=== PATIENT | female | born 2000 | race American Indian/Alaskan Native ===

== ENCOUNTER 2020-04-01 13:19 | Outpatient (CLI) | payer MEDICAID, OTHER ==
[2020-04-01 13:39] VITALS: BP 121/78
[2020-04-01] MEDS ORDERED: LACTATED RINGERS 1,000 ML IV SCH (13:45)
[2020-04-01 14:03] LABS: Bilirubin,Urine NEG (Negative); Blood,Urine NEG (Negative); Color,Urine Yellow (Yellow); Mucus,Urine FEW /HPF; Protein,Urine <15 mg/dL mg/dL (Negative); Urobilinogen,Urine < 2.0 mg/dL (<2.0)
== END 2020-04-01 14:36 | disposition home or self-care (01) ==
LOC: TRG 13:19 → APU 13:22 → TRG 14:36
PROVIDERS: ATTEND Obstetrics & Gynecology
DX: O26.893 Other specified pregnancy related conditions, third trimester (principal); L29.9 Pruritus, unspecified; Z3A.33 33 weeks gestation of pregnancy
CPT/HCPCS: 59025; 81001

== ENCOUNTER 2020-05-16 21:45 | Inpatient (IN) | payer MEDICAID ==
[2020-05-16 22:53] LABS: Amphetamine Screen,Urine Negative; Benzodiazepines Screen,Urine Negative; Cannabinoid Screen,Urine Negative; Cocaine Screen,Urine Negative; Methadone Screen,Urine Negative; Opiate Screen,Urine Negative
[2020-05-16 22:56] LABS: Bacteria,Urine 2+ /HPF (Negative); Bilirubin,Urine NEG (Negative); Blood,Urine NEG (Negative); Color,Urine Straw (Yellow); Protein,Urine <15 mg/dL mg/dL (Negative); Urobilinogen,Urine < 2.0 mg/dL (<2.0)
[2020-05-16] MEDS ORDERED: BUTORPHANOL 2 MG/1 ML INJ IV PRN (23:29)
[2020-05-16] MEDS ORDERED: TERBUTALINE 1 MG/1 ML INJ SUB-Q PRN (23:29)
[2020-05-16] MEDS ORDERED: fentaNYL 100 MCG/2 ML INJ IV PRN (23:29)
[2020-05-16] MEDS ORDERED: ePHEDrine SULFATE 50 MG/1 ML INJ IV PRN (23:29)
[2020-05-16] MEDS ORDERED: ONDANSETRON 4 MG/2 ML INJ IV PRN (23:29)
[2020-05-16] MEDS ORDERED: MINERAL OIL 30 ML ORAL LIQD PO PRN (23:29)
[2020-05-16] MEDS ORDERED: LIDOCAINE (2%) 20 MG/1 ML VIAL 20 ML MDV INFILTRATI ONE (23:29)
[2020-05-16] MEDS ORDERED: OXYTOCIN DRIP 30 UNITS/500 ML BAG IV SCH ×2 (23:45)
[2020-05-17 00:25] LABS: Hematocrit 31.9 % (30.3-42.9); Hemoglobin 11.1 gm/dl (10.1-14.3); Mean Corpuscular HGB Conc 35 % (30-34); Mean Corpuscular Volume 90 fl (79-97); Platelet Count 219 K/mm3 (140-440); Red Blood Count 3.55 M/mm3 (3.65-5.03); Red Cell Distribution Width 13.8 % (13.2-15.2)
[2020-05-17] MEDS: LACTATED RINGERS 1,000 ML IV SCH ×3 (00:26→09:32)
[2020-05-17] MEDS ORDERED: AMPICILLIN/NS 2 GM/100 ML 2 GM/100 ML BAG IV ONE (01:00)
[2020-05-17] MEDS ORDERED: fentaNYL-BUPIV 2 MCG/ML-0.125% 200 MCG/100 ML BAG EPIDURAL ONE (01:25)
[2020-05-17] MEDS ORDERED: ePHEDrine SULFATE 50 MG/1 ML INJ IV PRN (01:28)
[2020-05-17] MEDS ORDERED: NALOXONE 2 MG/2 ML INJ IV PRN (01:28)
--- NOTE | 2020-05-17 01:28 | Anesthesia Consultation ---
Anesthesia Consult and Med Hx Date of service: 05/17/20 - Airway Anesthetic Teeth Evaluation: Good ROM Head & Neck: Adequate Mental/Hyoid Distance: Adequate Mallampati Class: Class II Intubation Access Assessment: Probably Good - Pulmonary Exam CTA: Yes - Cardiac Exam Cardiac Exam: RRR - Pre-Operative Health Status ASA Pre-Surgery Classification: ASA2 Proposed Anesthetic Plan: Epidural - Pulmonary Hx Asthma: Yes (exercised induced) COPD: No Hx Pneumonia: No - Cardiovascular System Hx Hypertension: No - Central Nervous System Hx Seizures: No Hx Psychiatric Problems: No - Endocrine Hx Renal Disease: No Hx End Stage Renal Disease: No Hx Hypothyroidism: No Hx Hyperthyroidism: No - Hematic Hx Anemia: Yes (taking iron) Hx Sickle Cell Disease: No - Other Systems Hx Alcohol Use: No
--- NOTE | 2020-05-17 02:03 | Progress Note ---
Labor Epidural - Labor Epidural Start Time: 01:37 Stop Time: 01:55 Performed by:: BERTRAM CORTES Procedure: Patient is requesting epidural for labor pain. H&P, and labs reviewed. Procedure explained, questions answered, consent obtained. Patient in sitting position with blood pressure cuff and pulse ox on and working. Timeout performed immediately before start of procedure. Sterile chlorahexadine 0.5% prep/drape. 3 mL 1% lidocaine skin wheal at L[3]-L[4]. 18-gauge Tuohy epidural needle advanced to [id number] with saline at 5 cm. 27-gauge spinal needle advanced until clear, free-flowing CSF. Intrathecal dexmedetomidine [5] mcg administered and needle removed. Epidural catheter advanced to 10 cm, negative aspiration for blood and csf, negative test dose 3 ml 1.5% lidocaine with epinephrine. Sterile steri-strips and tegaderm applied, followed by tape reinforcement. Patient tolerated procedure well. x3 attempts. Pt has scoliosis with spine 3 cm off midline.
[2020-05-17] MEDS: fentaNYL-BUPIV 2 MCG/ML-0.125% 200 MCG/100 ML BAG EPIDURAL SCH ×2 (02:04→09:46)
[2020-05-17] MEDS: AMPICILLIN/NS 1 GM/50 ML 1 GM/50 ML BAG IV SCH ×2 (04:35→09:32)
--- NOTE | 2020-05-17 08:45 | History and Physical Report ---
History of Present Illness Date of examination: 05/17/20 Date of admission: 05/16/20 22:29 Chief complaint: labor History of present illness: at weeks, active labor no PNC Past History Past Surgical History: no surgical history BAKER PASTRY History: chlamydia, herpes, trichomonas Social history: no significant social history - Obstetrical History Expected Date of Delivery: 05/14/20 Actual Gestation: 40 Week(s) 4 Day(s) : 3 Medications and Allergies Allergies Allergy/AdvReac Type Severity Reaction Status Date / Time No Known Allergies Allergy Verified 04/01/20 13:31 Home Medications Medication Instructions Recorded Confirmed Last Taken Type Ibuprofen [Motrin] 600 mg PO Q8H PRN #60 tablet 05/17/20 Unknown Rx Vit-Fe Fumar-FA [ 1 tab PO DAILY 05/17/20 05/17/20 Unknown History Vitamin] Valtrex 1 tab PO DAILY 05/17/20 05/17/20 1 Day Ago History ~05/16/20 Active Meds: Active Medications Butorphanol Tartrate (Butorphanol 2 Mg/1 Ml Inj) 2 mg IV Q2H PRN PRN Reason: Pain , Severe (7-10) Ephedrine Sulfate (Ephedrine Sulfate 50 Mg/1 Ml Inj) 10 mg IV Q2M PRN PRN Reason: Hypotension Fentanyl (Fentanyl 100 Mcg/2 Ml Inj) 100 mcg IV Q2H PRN PRN Reason: Pain,Severe (7-10) LABOR PAIN Last Admin: 05/17/20 00:46 Dose: 100 mcg Documented by: Oxytocin/Sodium Chloride (Pitocin/Ns 30 Unit/500ml) 30 units in 500 mls @ 2 mls/hr IV TITR JERAMIE; Protocol Lactated Ringer's (Lactated Ringers) 1,000 mls @ 125 mls/hr IV DIRECT JERAMIE Last Infusion: 05/17/20 02:05 Dose: 125 mls/hr Documented by: Oxytocin/Sodium Chloride (Pitocin/Ns 30 Unit/500ml) 30 units in 500 mls @ 40 mls/hr IV TITR JERAMIE; Protocol Ampicillin Sodium (Ampicillin/Ns 1 Gm/50 Ml) 1 gm in 50 mls @ 100 mls/hr IV Q4H JERAMIE; Protocol Last Admin: 05/17/20 04:35 Dose: 100 mls/hr Documented by: Fentanyl/Bupivacaine/Sodium Chlor (Fentanyl-Bupiv 2 Mcg/Ml-0.125%) 200 mcg in 100 mls @ 12 mls/hr EPIDURAL TITR JERAMIE; Protocol Last Admin: 05/17/20 02:04 Dose: 12 mls/hr Documented by: Mineral Oil (Mineral Oil 30 Ml Oral Liqd) 30 ml PO QHS PRN PRN Reason: Constipation Naloxone HCl (Naloxone 2 Mg/2 Ml Inj) 0.2 mg IV Q5M PRN PRN Reason: Respiratory sedation Ondansetron HCl (Ondansetron 4 Mg/2 Ml Inj) 4 mg IV Q8H PRN PRN Reason: Nausea And Vomiting Terbutaline Sulfate (Terbutaline 1 Mg/1 Ml Inj) 0.25 mg SUB-Q ONCE PRN PRN Reason: Hyperstimulation/Hypertonicity - Vital Signs Vital signs: Vital Signs Temp Resp 98.3 F 20 05/16/20 22:44 05/16/20 22:44 Temp Pulse Resp BP Pulse Ox 97.6 F 55 L 18 149/74 98 05/17/20 04:36 05/17/20 08:41 05/17/20 04:36 05/17/20 08:39 05/17/20 08:41 - Physical Exam Breasts: Positive: deferred Cardiovascular: Normal S1 Lungs: Positive: Clear to auscultation Abdomen: Positive: normal appearance, soft, normal bowel sounds Extremities: Positive: normal Deep Tendon Reflex Grade: Normal +2 - Obstetrical FHR: category 1 Cervical Dilatation: 7 Cervical Effacement Percentage: 100 station: -1 Uterine Contraction Pattern: Regular Results Result Diagrams: 05/18/20 04:31 Abnormal lab results 05/16/20 05/17/20 Range/Units 22:30 00:12 WBC 11.4 H (4.5-11.0) K/mm3 RBC 3.55 L (3.65-5.03) M/mm3 MCHC 35 H (30-34) % Urine pH 8.0 H (5.0-7.0) Urine WBC (Auto) 14.0 H (0.0-6.0) /HPF All other labs normal. Assessment and Plan admit epidural pitocin per protocol GBS if appropriate CFM expect logan Farmer MD
--- NOTE | 2020-05-17 10:59 | Progress Note ---
Subjective - Subjective Date of service: 05/17/20 Interval history: 100/0 AROM clear fluid oxytocin per protocol CFM Maternal/ well being reassuring overall expect ru Farmer MD Objective - Vital Signs Vital Signs: Vital Signs - 12hr 05/16/20 05/17/20 05/17/20 23:33 00:09 00:14 Temperature Pulse Rate 56 L 84 68 Respiratory Rate Blood Pressure 155/91 Blood Pressure [Right] O2 Sat by Pulse 98 98 Oximetry 05/17/20 05/17/20 05/17/20 00:19 00:23 00:24 Temperature Pulse Rate 65 56 L 72 Respiratory Rate Blood Pressure Blood Pressure [Right] O2 Sat by Pulse 99 93 96 Oximetry 05/17/20 05/17/20 05/17/20 00:29 00:32 00:34 Temperature Pulse Rate 55 L 58 L 64 Respiratory Rate Blood Pressure Blood Pressure [Right] O2 Sat by Pulse 97 94 99 Oximetry 05/17/20 05/17/20 05/17/20 00:39 00:44 00:46 Temperature Pulse Rate 59 L 72 Respiratory 18 Rate Blood Pressure Blood Pressure [Right] O2 Sat by Pulse 98 96 Oximetry 05/17/20 05/17/20 05/17/20 00:49 00:54 00:55 Temperature Pulse Rate 55 L 62 55 L Respiratory Rate Blood Pressure Blood Pressure [Right] O2 Sat by Pulse 92 96 92 Oximetry 05/17/20 05/17/20 05/17/20 00:59 01:04 01:09 Temperature Pulse Rate 55 L 53 L 66 Respiratory Rate Blood Pressure Blood Pressure [Right] O2 Sat by Pulse 96 96 97 Oximetry 05/17/20 05/17/20 05/17/20 01:10 01:14 01:19 Temperature Pulse Rate 68 53 L 54 L Respiratory Rate Blood Pressure 135/91 Blood Pressure [Right] O2 Sat by Pulse 97 99 Oximetry 05/17/20 05/17/20 05/17/20 01:24 01:29 01:36 Temperature Pulse Rate 57 L 68 73 Respiratory Rate Blood Pressure Blood Pressure [Right] O2 Sat by Pulse 99 98 98 Oximetry 05/17/20 05/17/20 05/17/20 01:39 01:41 01:46 Temperature Pulse Rate 68 67 70 Respiratory Rate Blood Pressure 130/68 Blood Pressure [Right] O2 Sat by Pulse 97 98 Oximetry 05/17/20 05/17/20 05/17/20 01:51 01:54 01:56 Temperature Pulse Rate 67 85 86 Respiratory Rate Blood Pressure 139/68 129/66 Blood Pressure [Right] O2 Sat by Pulse 98 98 Oximetry 05/17/20 05/17/20 05/17/20 02:01 02:02 02:04 Temperature Pulse Rate 67 61 67 Respiratory Rate Blood Pressure 119/64 124/65 117/63 Blood Pressure [Right] O2 Sat by Pulse 98 Oximetry 05/17/20 05/17/20 05/17/20 02:06 02:08 02:10 Temperature Pulse Rate 79 71 87 Respiratory Rate Blood Pressure 124/69 119/66 123/73 Blood Pressure [Right] O2 Sat by Pulse 98 Oximetry 05/17/20 05/17/20 05/17/20 02:11 02:13 02:14 Temperature Pulse Rate 71 61 60 Respiratory Rate Blood Pressure 124/72 124/72 Blood Pressure [Right] O2 Sat by Pulse 98 Oximetry 05/17/20 05/17/20 05/17/20 02:16 02:21 02:26 Temperature Pulse Rate 61 60 66 Respiratory Rate Blood Pressure 120/72 Blood Pressure [Right] O2 Sat by Pulse 98 98 98 Oximetry 05/17/20 05/17/20 05/17/20 02:31 02:36 02:39 Temperature Pulse Rate 58 L 62 57 L Respiratory Rate Blood Pressure 116/64 Blood Pressure [Right] O2 Sat by Pulse 98 97 Oximetry 05/17/20 05/17/20 05/17/20 02:41 02:46 02:51 Temperature Pulse Rate 60 65 63 Respiratory Rate Blood Pressure Blood Pressure [Right] O2 Sat by Pulse 97 97 98 Oximetry 05/17/20 05/17/20 05/17/20 02:56 02:59 03:01 Temperature Pulse Rate 69 57 L 58 L Respiratory Rate Blood Pressure 119/77 Blood Pressure [Right] O2 Sat by Pulse 98 97 Oximetry 05/17/20 05/17/20 05/17/20 03:06 03:11 03:16 Temperature Pulse Rate 62 64 70 Respiratory Rate Blood Pressure Blood Pressure [Right] O2 Sat by Pulse 98 98 98 Oximetry 05/17/20 05/17/20 05/17/20 03:20 03:21 03:25 Temperature Pulse Rate 65 67 60 Respiratory Rate Blood Pressure 121/80 Blood Pressure [Right] O2 Sat by Pulse 97 89 Oximetry 05/17/20 05/17/20 05/17/20 03:26 03:31 03:36 Temperature Pulse Rate 67 73 57 L Respiratory Rate Blood Pressure Blood Pressure [Right] O2 Sat by Pulse 98 97 98 Oximetry 05/17/20 05/17/20 05/17/20 03:39 03:41 03:46 Temperature Pulse Rate 57 L 59 L 64 Respiratory Rate Blood Pressure 122/79 Blood Pressure [Right] O2 Sat by Pulse 98 97 Oximetry 05/17/20 05/17/20 05/17/20 03:51 03:56 03:59 Temperature Pulse Rate 53 L 54 L 53 L Respiratory Rate Blood Pressure 127/79 Blood Pressure [Right] O2 Sat by Pulse 98 98 Oximetry 05/17/20 05/17/20 05/17/20 04:01 04:06 04:11 Temperature Pulse Rate 55 L 60 60 Respiratory Rate Blood Pressure Blood Pressure [Right] O2 Sat by Pulse 98 98 98 Oximetry 05/17/20 05/17/20 05/17/20 04:16 04:18 04:21 Temperature Pulse Rate 54 L 53 L 59 L Respiratory Rate Blood Pressure 121/80 Blood Pressure [Right] O2 Sat by Pulse 98 98 Oximetry 05/17/20 05/17/20 05/17/20 04:26 04:31 04:36 Temperature 97.6 F Pulse Rate 60 60 59 L Respiratory 18 Rate Blood Pressure Blood Pressure 121/80 [Right] O2 Sat by Pulse 98 98 98 Oximetry 05/17/20 05/17/20 05/17/20 04:41 04:46 04:51 Temperature Pulse Rate 59 L 55 L 65 Respiratory Rate Blood Pressure Blood Pressure [Right] O2 Sat by Pulse 97 98 97 Oximetry 05/17/20 05/17/20 05/17/20 04:56 05:01 05:06 Temperature Pulse Rate 62 56 L 66 Respiratory Rate Blood Pressure Blood Pressure [Right] O2 Sat by Pulse 98 97 98 Oximetry 05/17/20 05/17/20 05/17/20 05:11 05:16 05:21 Temperature Pulse Rate 74 59 L 58 L Respiratory Rate Blood Pressure Blood Pressure [Right] O2 Sat by Pulse 98 98 98 Oximetry 05/17/20 05/17/20 05/17/20 05:26 05:31 05:36 Temperature Pulse Rate 70 63 59 L Respiratory Rate Blood Pressure Blood Pressure [Right] O2 Sat by Pulse 98 98 98 Oximetry 05/17/20 05/17/20 05/17/20 05:39 05:41 05:46 Temperature Pulse Rate 56 L 63 55 L Respiratory Rate Blood Pressure 126/66 Blood Pressure [Right] O2 Sat by Pulse 96 99 Oximetry 05/17/20 05/17/20 05/17/20 05:51 05:56 06:01 Temperature Pulse Rate 57 L 59 L 61 Respiratory Rate Blood Pressure Blood Pressure [Right] O2 Sat by Pulse 98 97 98 Oximetry 05/17/20 05/17/20 05/17/20 06:06 06:11 06:16 Temperature Pulse Rate 61 57 L 59 L Respiratory Rate Blood Pressure Blood Pressure [Right] O2 Sat by Pulse 98 98 97 Oximetry 05/17/20 05/17/20 05/17/20 06:21 06:26 06:31 Temperature Pulse Rate 57 L 65 58 L Respiratory Rate Blood Pressure Blood Pressure [Right] O2 Sat by Pulse 99 98 97 Oximetry 05/17/20 05/17/20 05/17/20 06:36 06:40 06:41 Temperature Pulse Rate 54 L 53 L 56 L Respiratory Rate Blood Pressure 122/75 Blood Pressure [Right] O2 Sat by Pulse 97 97 Oximetry 05/17/20 05/17/20 05/17/20 06:46 06:51 06:56 Temperature Pulse Rate 58 L 60 58 L Respiratory Rate Blood Pressure Blood Pressure [Right] O2 Sat by Pulse 97 97 98 Oximetry 05/17/20 05/17/20 05/17/20 07:01 07:06 07:11 Temperature Pulse Rate 62 57 L 61 Respiratory Rate Blood Pressure Blood Pressure [Right] O2 Sat by Pulse 97 98 97 Oximetry 05/17/20 05/17/20 05/17/20 07:16 07:21 07:26 Temperature Pulse Rate 54 L 65 60 Respiratory Rate Blood Pressure Blood Pressure [Right] O2 Sat by Pulse 97 97 97 Oximetry 05/17/20 05/17/20 05/17/20 07:31 07:36 07:40 Temperature Pulse Rate 55 L 64 67 Respiratory Rate Blood Pressure 119/73 Blood Pressure [Right] O2 Sat by Pulse 98 97 Oximetry 04/10/21 04/10/21 04/10/21 07:41 07:46 07:51 Temperature Pulse Rate 65 64 74 Respiratory Rate Blood Pressure Blood Pressure [Right] O2 Sat by Pulse 97 97 98 Oximetry 05/17/20 05/17/20 05/17/20 07:56 08:01 08:06 Temperature Pulse Rate 58 L 58 L 53 L Respiratory Rate Blood Pressure Blood Pressure [Right] O2 Sat by Pulse 98 98 98 Oximetry 05/17/20 05/17/20 05/17/20 08:11 08:16 08:21 Temperature Pulse Rate 54 L 54 L 52 L Respiratory Rate Blood Pressure Blood Pressure [Right] O2 Sat by Pulse 98 96 98 Oximetry 05/17/20 05/17/20 05/17/20 08:26 08:31 08:36 Temperature Pulse Rate 56 L 68 64 Respiratory Rate Blood Pressure Blood Pressure [Right] O2 Sat by Pulse 97 97 99 Oximetry 05/17/20 05/17/20 05/17/20 08:39 08:41 08:46 Temperature Pulse Rate 71 55 L 52 L Respiratory Rate Blood Pressure 149/74 Blood Pressure [Right] O2 Sat by Pulse 98 98 Oximetry 05/17/20 05/17/20 05/17/20 08:51 08:56 09:01 Temperature Pulse Rate 58 L 59 L 54 L Respiratory Rate Blood Pressure Blood Pressure [Right] O2 Sat by Pulse 98 97 99 Oximetry 05/17/20 05/17/20 05/17/20 09:06 09:10 09:11 Temperature Pulse Rate 60 61 66 Respiratory Rate Blood Pressure Blood Pressure [Right] O2 Sat by Pulse 99 86 99 Oximetry 05/17/20 05/17/20 05/17/20 09:16 09:18 09:21 Temperature Pulse Rate 61 63 58 L Respiratory Rate Blood Pressure Blood Pressure [Right] O2 Sat by Pulse 99 93 99 Oximetry 05/17/20 05/17/20 05/17/20 09:26 09:31 09:36 Temperature Pulse Rate 57 L 54 L 54 L Respiratory Rate Blood Pressure Blood Pressure [Right] O2 Sat by Pulse 99 99 99 Oximetry 05/17/20 05/17/20 05/17/20 09:40 09:41 09:46 Temperature Pulse Rate 51 L 53 L 53 L Respiratory Rate Blood Pressure 137/86 Blood Pressure [Right] O2 Sat by Pulse 99 99 Oximetry 05/17/20 05/17/20 05/17/20 09:51 09:56 10:01 Temperature Pulse Rate 68 62 56 L Respiratory Rate Blood Pressure Blood Pressure [Right] O2 Sat by Pulse 98 99 98 Oximetry 05/17/20 05/17/20 05/17/20 10:06 10:11 10:16 Temperature Pulse Rate 56 L 56 L 56 L Respiratory Rate Blood Pressure Blood Pressure [Right] O2 Sat by Pulse 98 98 97 Oximetry 05/17/20 05/17/20 05/17/20 10:21 10:26 10:31 Temperature Pulse Rate 58 L 55 L 66 Respiratory Rate Blood Pressure Blood Pressure [Right] O2 Sat by Pulse 97 99 98 Oximetry 05/17/20 05/17/20 05/17/20 10:36 10:39 10:41 Temperature Pulse Rate 61 57 L 60 Respiratory Rate Blood Pressure 141/86 Blood Pressure [Right] O2 Sat by Pulse 98 99 Oximetry 05/17/20 05/17/20 05/17/20 10:46 10:51 10:56 Temperature Pulse Rate 74 65 64 Respiratory Rate Blood Pressure Blood Pressure [Right] O2 Sat by Pulse 98 99 100 Oximetry - Labs Labs: Abnormal Labs 05/16/20 05/17/20 22:30 00:12 WBC 11.4 H RBC 3.55 L MCHC 35 H Urine pH 8.0 H Urine WBC (Auto) 14.0 H Laboratory Results - last 24 hr 05/16/20 05/16/20 05/17/20 22:30 22:30 00:12 WBC 11.4 H RBC 3.55 L Hgb 11.1 Hct 31.9 MCV 90 MCH 31 MCHC 35 H RDW 13.8 Plt Count 219 Urine Color Straw Urine Turbidity Clear Urine pH 8.0 H Ur Specific [place] 1.003 Urine Protein <15 mg/dl Urine Glucose (UA) Neg Urine Ketones Neg Urine Blood Neg Urine Nitrite Neg Urine Bilirubin Neg Urine Urobilinogen < 2.0 Ur Leukocyte Esterase Lg Urine WBC (Auto) 14.0 H Urine RBC (Auto) 2.0 U Epithel Cells (Auto) 4.0 Urine Bacteria (Auto) 2+ Urine Opiates Screen Negative Urine Methadone Screen Negative Ur Barbiturates Screen Negative Ur Phencyclidine Scrn Negative Ur Amphetamines Screen Negative U Benzodiazepines Scrn Negative Urine Cocaine Screen Negative U Marijuana (THC) Screen Negative Drugs of Abuse Note Disclamer Syphilis IgG Antibody Blood Type Antibody Screen 05/17/20 05/17/20 00:12 00:12 WBC RBC Hgb Hct MCV MCH MCHC RDW Plt Count Urine Color Urine Turbidity Urine pH Ur Specific [place] Urine Protein Urine Glucose (UA) Urine Ketones Urine Blood Urine Nitrite Urine Bilirubin Urine Urobilinogen Ur Leukocyte Esterase Urine WBC (Auto) Urine RBC (Auto) U Epithel Cells (Auto) Urine Bacteria (Auto) Urine Opiates Screen Urine Methadone Screen Ur Barbiturates Screen Ur Phencyclidine Scrn Ur Amphetamines Screen U Benzodiazepines Scrn Urine Cocaine Screen U Marijuana (THC) Screen Drugs of Abuse Note Syphilis IgG Antibody Nonreactive Blood Type O POSITIVE Antibody Screen Negative
[2020-05-17] MEDS ORDERED: LANOLIN/ZINC/DIMETHICONE (LANSINOH) 7 GM TP PRN (12:38)
[2020-05-17] MEDS ORDERED: PROMETHAZINE 25 MG TAB PO PRN (12:38)
[2020-05-17] MEDS ORDERED: diphenhydrAMINE 25 MG CAP PO PRN (12:38)
[2020-05-17] MEDS ORDERED: HYDROcodone/ACETAMINOPHEN 5-325 MG TAB PO PRN (12:38)
[2020-05-17] MEDS ORDERED: ACETAMINOPHEN 325 MG TAB PO PRN (12:38)
[2020-05-17] MEDS ORDERED: PROMETHAZINE 25 MG RECT SUPP PR PRN (12:38)
[2020-05-17] MEDS ORDERED: MAGNESIUM HYDROXIDE (MOM) ORAL LIQD UDC PO PRN (12:38)
[2020-05-17] MEDS ORDERED: ONDANSETRON 4 MG/2 ML INJ IV PRN (12:38)
--- NOTE | 2020-05-17 12:45 | Procedure Note ---
OB Delivery Note - Delivery Date of Delivery: 05/17/20 Surgeon: RAJ SHRESTHA Estimated blood loss: other (350ml) - Vaginal Delivery position: OA Intrapartum events: none Delivery induction: none Delivery augmentation: rupture of membranes, pitocin Delivery monitor: external FHT, external uterine Route of delivery: Delivery placenta: spontaneous Delivery cord: 3 umbilical vessels Episiotomy: none, midline Delivery laceration: vaginal side wall Delivery repair: vicryl Anesthesia: epidural Delivery comments: Patient pushed to deliver a viable male after midline episiotomy with weight 3489gms and 8/9. Position KAREY, no nuchal cord. Spontaneous cry at delivery. Delivery of the anterior shoulder atraumatic, remainder of delivery uncomplicated. Cord clamped cut and baby handed to waiting LISHA team. Spontaneous delivery of an intact placenta with three-vessel cord. Repair of midline episiotomy with 2-0 vicryl in the usualfashion with excellent hemostasis. Inspection of the perineum cervix and vagina revealed no lacerations. Firm fundus, EBL 350ml. All sponge needle and instrument counts correct x2. Mom and baby stable to . Sylvia Shrestha MD
--- NOTE | 2020-05-17 15:26 | Post Anesthesia Evaluation ---
- Post Anesthesia Evaluation Patient Participated: Yes Airway Patent: Yes Stable Respiratory Function: Yes Nausea/Vomiting: No Temp > 96.8F: Yes Pain Manageable: Yes Adequeate Hydration: Yes Anesthesia Complications: No Block Receding Appropriately: Yes
[2020-05-17] MEDS: IBUPROFEN 600 MG TAB PO SCH (18:34)
[2020-05-17] MEDS: WITCH HAZEL/ GLYCERIN PAD TP PRN (18:38)
[2020-05-18] MEDS: IBUPROFEN 600 MG TAB PO SCH ×4 (00:08→23:52)
[2020-05-18 04:48] LABS: Hematocrit 25.5 % (30.3-42.9); Hemoglobin 8.6 gm/dl (10.1-14.3)
[2020-05-18] MEDS: FERROUS SULFATE 325 MG TAB PO SCH ×2 (10:20→21:44)
--- NOTE | 2020-05-18 10:29 | Progress Note ---
Assessment and Plan A: day 1 S/P . Anemia. P: Supplement with iron. Anticipate discharge home tomorrow if patient continues to do well. Subjective - Subjective Date of service: 05/18/20 Principal diagnosis: day 1 S/P Interval history: No complaints. Patient reports: appetite normal, voiding normally, pain well controlled, flatus, ambulating normally, no dizzy ambulation, no nauseated [place]: doing well Objective - Vital Signs Latest vital signs: Vital Signs Temp Pulse Resp BP BP Pulse Ox 05/18/20 08:40 97.6 F 66 18 121/79 99 05/18/20 05:41 20 05/18/20 01:37 97.4 F L 53 L 18 122/77 99 05/18/20 00:08 20 05/17/20 21:50 98.4 F 73 18 124/65 98 05/17/20 14:27 97.8 F 67 18 125/85 97 05/17/20 14:17 76 81 L 05/17/20 14:08 82 L 05/17/20 13:57 85 85 05/17/20 13:56 75 98 05/17/20 13:53 18 05/17/20 13:52 66 132/86 05/17/20 13:51 98.8 F 64 18 98 05/17/20 13:46 70 98 05/17/20 13:41 68 99 05/17/20 13:38 72 137/85 05/17/20 13:36 78 98 05/17/20 13:31 77 97 05/17/20 13:26 90 98 05/17/20 13:21 72 99 05/17/20 13:20 76 92 05/17/20 13:16 69 98 05/17/20 13:11 70 98 05/17/20 13:08 72 90 05/17/20 13:06 70 99 05/17/20 13:02 80 84 05/17/20 13:01 83 98 05/17/20 12:56 82 94 05/17/20 12:55 80 93 05/17/20 12:51 67 99 05/17/20 12:50 83 92 05/17/20 12:46 84 98 05/17/20 12:41 83 99 05/17/20 12:39 93 H 115/84 05/17/20 12:36 95 H 98 05/17/20 12:35 111 H 94 05/17/20 12:31 96 H 100 05/17/20 12:26 94 H 99 05/17/20 12:21 75 98 05/17/20 12:16 77 98 05/17/20 12:11 71 98 05/17/20 12:07 73 L 05/17/20 12:06 78 97 05/17/20 12:02 73 85 05/17/20 12:01 69 98 05/17/20 11:56 107 H 98 05/17/20 11:51 69 99 05/17/20 11:49 82 83 L 05/17/20 11:46 84 98 05/17/20 11:41 76 98 05/17/20 11:40 78 143/93 05/17/20 11:36 71 100 05/17/20 11:31 64 99 05/17/20 11:26 61 98 05/17/20 11:21 61 99 05/17/20 11:16 69 99 05/17/20 11:12 46 L 87 05/17/20 11:11 69 99 05/17/20 11:06 60 99 05/17/20 11:01 64 99 05/17/20 10:56 64 100 05/17/20 10:51 65 99 05/17/20 10:46 74 98 05/17/20 10:41 60 99 05/17/20 10:39 57 L 141/86 05/17/20 10:36 61 98 05/17/20 10:31 66 98 Intake and Output 05/17/20 05/18/20 05/18/20 23:59 07:59 15:59 Intake Total 480 540 Output Total 1200 200 Balance -720 340 Intake: Intake, Free Water 480 540 Output: Urine 1200 200 Void 1200 200 Other: Total, Output Amount 600 200 # Voids Void 1 1 - Exam Cardiovascular: Present: Regular rate, No murmurs Lungs: Present: Clear to auscultation Abdomen: Present: normal appearance, soft. Absent: distention, tenderness, guarding, rigidity Uterus: Present: normal, firm, fundal height below umbilicus. Absent: bogginess, tenderness Extremities: Present: normal. Absent: tenderness, edema - Labs Labs: Abnormal lab results 05/18/20 Range/Units 04:31 Hgb 8.6 L (10.1-14.3) gm/dl Hct 25.5 L D (30.3-42.9) %
[2020-05-19] MEDS: IBUPROFEN 600 MG TAB PO SCH ×2 (05:26→11:05)
--- NOTE | 2020-05-19 06:14 | Progress Note ---
Assessment and Plan A: day 2 S/P . Anemia. P: Discharge patient home later this afternoon after she has seen case management/social research assistant. Discussed with patient discharge instructions and warning signs. Advised patient to take vitamin and iron supplement at home. Advised patient to avoid intercourse, lifting, and heavy housework. Advised patient to follow up at [facility] in 1 week. Patient voiced understanding of all instructions. Subjective - Subjective Date of service: 05/19/20 Principal diagnosis: day 2 S/P Interval history: No complaints. Desires discharge home later today after she sees the social media project manager. Case management consult has been put in for pt. due to no care. Patient reports: appetite normal, voiding normally, pain well controlled, flatus, ambulating normally, no dizzy ambulation, no nauseated : doing well Objective - Vital Signs Latest vital signs: Vital Signs Temp Pulse Resp BP BP Pulse Ox 05/19/20 00:06 97.2 F L 56 L 20 128/86 98 05/18/20 16:50 97.9 F 69 18 129/87 97 05/18/20 12:57 97.8 F 78 18 126/79 97 05/18/20 08:40 97.6 F 66 18 121/79 99 Intake and Output 05/18/20 05/18/20 05/19/20 15:59 23:59 07:59 Intake Total 240 240 Balance 240 240 Intake: Oral 240 Intake, Free Water 240 Other: Total, Intake Amount 240 # Voids Void 1 2 - Exam Cardiovascular: Present: Regular rate Lungs: Present: Clear to auscultation Abdomen: Present: normal appearance, soft. Absent: distention, tenderness, guarding, rigidity Uterus: Present: normal, firm, fundal height below umbilicus. Absent: bogginess, tenderness Extremities: Present: normal. Absent: tenderness, edema
--- NOTE | 2020-05-19 06:18 | Discharge Summary ---
Providers - Providers Date of Admission: 05/17/20 01:28 Date of discharge: 05/19/20 Attending physician: SEJAL MENDIOLA 05/19/20 06:09 Consult to Case Management [CONS] Routine Services Needed at Discharge: Crime Scene Evidence Technician Additional Physician Instructions: No care; assess for discharge later today Primary care physician: BOTTLE MACHINE OPERATOR Hospitalization Reason for admission: active labor Delivery: Episiotomy: midline Laceration: 2nd degree Other procedures: none complications: none Discharge diagnosis: IUP at term delivered baby: male Pertinent studies: Labs Hospital course: Normal hospital course. Condition at discharge: Good Disposition: DC-01 TO HOME OR SELFCARE - Discharge Diagnoses (1) Term delivered Status: Acute (2) Anemia Status: Acute Plan - Discharge Medications Prescriptions: Ibuprofen [Motrin] 600 mg PO Q8H PRN #60 tablet PRN Reason: Pain - Provider Discharge Summary Activity: routine, no sex for 6 weeks, no heavy lifting 4 weeks, no strenuous exercise Diet: routine Instructions: routine Additional instructions: Continue taking your vitamin and iron supplement at home. Follow up at [facility] in 1 week. Call your doctor immediately for: * Fever > 100.5 * Heavy vaginal bleeding ( >1 pad per hour) * Severe persistent headache * Shortness of breath * Reddened, hot, painful area to leg or breast - Follow up plan Follow up: RAJ SHRESTHA MD [Staff Physician] - 7 Days
[2020-05-19 09:21] VITALS: BP 120/82
[2020-05-19] MEDS: FERROUS SULFATE 325 MG TAB PO SCH (10:29)
[2020-05-19] MEDS: WITCH HAZEL/ GLYCERIN PAD TP PRN (13:44)
== END 2020-05-19 14:00 | disposition home or self-care (01) | DRG 774 ==
LOC: TRG 21:45 → APU 21:52 → LD 22:29 → INTOOBSV 22:29 → TRG 22:29 → UNDOADMOB 22:29 → OBSVTOIN 22:29 → LD 05-17 01:28 → OBSVTOIN 05-17 01:28 → OB 05-17 14:20
PROVIDERS: ADMIT Obstetrics & Gynecology; ATTEND Obstetrics & Gynecology
PROC: 10E0XZZ Delivery of Products of Conception, External Approach (ICD-10-PCS; principal; 2020-05-17)
PROC: 0UQGXZZ Repair Vagina, External Approach (ICD-10-PCS; 2020-05-17)
PROC: 3E0R3BZ Introduction of Anesthetic Agent into Spinal Canal, Percutaneous Approach (ICD-10-PCS; 2020-05-17)
PROC: 00HU33Z Insertion of Infusion Device into Spinal Canal, Percutaneous Approach (ICD-10-PCS; 2020-05-17)
PROC: 0W8NXZZ Division of Female Perineum, External Approach (ICD-10-PCS; 2020-05-17)
DX: O99.52 Diseases of the respiratory system complicating childbirth (principal); O98.52 Other viral diseases complicating childbirth; O70.0 First degree perineal laceration during delivery; Z3A.38 38 weeks gestation of pregnancy; Z37.0 Single live birth; Z20.822 Contact with and (suspected) exposure to COVID-19; B00.9 Herpesviral infection, unspecified; O90.81 Anemia of the puerperium; D64.9 Anemia, unspecified
CPT/HCPCS: 36415; 59025; 80307; 81001; 85014; 85018; 85027; 86592; 86850; 86900; 86901; 87086; 88307; G0378; J0290; J2590; J3010; J7120; U0003